=== PATIENT | female | born 1980 ===

== ENCOUNTER 2017-06-07 13:10 | Outpatient (CLI) | payer OTHER | END 2017-06-07 13:11 | disposition home or self-care (01) | LOC: BICULT 13:10 | PROVIDERS: ATTEND Nurse Practitioner Family | DX: R10.11 Right upper quadrant pain (principal); K80.20 Calculus of gallbladder without cholecystitis without obstruction; K76.0 Fatty (change of) liver, not elsewhere classified | CPT/HCPCS: 76700 ==